=== PATIENT | female | born 1965 | race Caucasian/White ===

== ENCOUNTER 2018-03-29 08:34 | Inpatient (IN) ==
--- NOTE | 2018-03-29 09:11 | ED ---
HPI General Chief complaint: Respiratory Symptoms Stated complaint: SOB Time Seen by Provider: 03/29/18 08:59 History of Present Illness HPI narrative: Patient presents to the emergency department complaining of shortness of breath chest pain and back pain since yesterday. She states she had similar episode in the past and was secondary to asthma/bronchitis. Use an old inhaler this morning but that did not help. Feels like she needs a breathing treatment. Recent travel, fever, vomiting, lower extremity edema. Does report shortness of breath at rest and on exertion and nausea. Chest pain described as being diffuse chest radiating to her back, 5 out of 10, constant, tight/pressure-like, aggravated by cigarettes, no alleviating factors. Related Data Home Medications Medication Instructions Recorded Confirmed valacyclovir [Valtrex] 500 mg PO DAILY 03/29/18 03/29/18 Allergies Allergy/AdvReac Type Severity Reaction Status Date / Time opioids AdvReac Vomiting Uncoded 03/29/18 08:57 Review of Systems ROS: all other systems reviewed are negative [facility] Medical History Medical History Asthma (Acute) Social History Social History Substance History: Active Abuse Second Hand Smoke Exposure: Yes Smoking Status: Current every day smoker Tobacco Type: Cigarettes How Often Do You Have a Drink Containing Alcohol: Never Recent Travel in [facility] within the Last 8 Weeks: No Recent Out of Country Travel within the Last 8 Weeks: No Substance Abuse Detail Marijuana: Route Used Substance Abuse: By Mouth Immunization History Tetanus Immunization: >5 Years Hx Influenza Vaccine This Season: No Exam Narrative Exam Narrative: GENERAL: Positive discomfort SKIN: Focused skin assessment warm/dry. HEAD: Atraumatic. Normocephalic. EYES: Pupils equal and round. No scleral icterus. No injection or drainage. ENT: No nasal bleeding or discharge. Mucous membranes pink and moist. NECK: Trachea midline. No JVD. CARDIOVASCULAR: Regular rate and rhythm. No murmur appreciated. No pulse deficits. RESPIRATORY: No accessory muscle use. Clear to auscultation. Breath sounds equal bilaterally. Tachypnea. GASTROINTESTINAL: Abdomen soft, non-tender, nondistended. Hepatic and splenic margins not palpable. MUSCULOSKELETAL: No obvious deformities. No clubbing. No cyanosis. No edema. NEUROLOGICAL: Awake and alert. No obvious cranial nerve deficits. Motor grossly within normal limits. Normal speech. PSYCHIATRIC: Appropriate mood and affect; insight and judgment normal. Course Initial Documented Vital Signs Temperature 98.2 F 03/29/18 08:44 Pulse Rate 102 H 03/29/18 08:44 Respiratory Rate 26 H 03/29/18 08:44 Blood Pressure 113/58 L 03/29/18 08:44 Pulse Oximetry 100 03/29/18 08:44 Last Documented Vital Signs Temperature 98.2 F 03/29/18 08:44 Pulse Rate 79 03/29/18 10:43 Respiratory Rate 19 03/29/18 10:43 Blood Pressure 110/62 03/29/18 10:43 Pulse Oximetry 100 03/29/18 10:43 Critical Care Time Critical Care Time: Yes Total Critical Care Time: 30 Attestation: Aggregate critical care time was 30 minutes. Time to perform other separately billable procedures was not included in the critical care time. My time did not include minutes spent treating any other patients simultaneously or on activities that did not directly contribute to the patient's treatment. The services I provided to this patient were to treat and/or prevent clinically significant deterioration that could result in: cardiac arrest, cardiac arrhythmia, , increased morbidity. I provided critical care services requiring my management, as noted below: Chart data review, documentation time, medication orders and management, vital sign assessments/reviewing monitor data, ordering and reviewing lab tests, ordering and interpreting/reviewing x-rays and diagnostic studies, care of the patient and discussion of the patient with the admitting physicians. Medical Decision Making MDM Narrative Medical decision making narrative: Patient presents to the emergency department with chest pain and shortness of breath. Patient placed on cardiac exercise specialist, continuous pulse ox, and IV access obtained. Chest x-ray, EKG, labs ordered. She also given 1 DuoNeb and aspirin 325 mg p.o. CXR, cardiac enz, d-dimer wnl; potassium low (2.5)-> Given 40meq po and 20MEQ IV over 2 hours. Patient c/o chest and neck and back pain. Allergic to opioids, states NSAIDS help. Given 30mg IV toradol. Sttaes toradol has helped. Will beadmitted for chest pain and hypokalemia. Medical Screen Exam Complete: Yes Emergency Medical Condition: Yes Lab Data Result diagrams: 03/29/18 09:22 03/29/18 09:22 Lab Results 03/29/18 03/29/18 03/29/18 Range/Units 09:22 09:22 09:22 WBC 11.5 H (4.0-11.0) th/mm3 RBC 4.09 (4.00-5.30) mil/mm3 Hgb 12.1 (11.6-15.3) gm/dL Hct 36.6 (35.0-46.0) % MCV 89.5 (80.0-100.0) fL MCH 29.5 (27.0-34.0) pg MCHC 33.0 (32.0-36.0) % RDW 14.3 (11.6-17.2) % Plt Count 377 (150-450) th/mm3 MPV 8.8 (7.0-11.0) fL Neut % (Auto) 74.9 H (16.0-70.0) % Lymph % (Auto) 15.2 (9.0-44.0) % [place] % (Auto) 9.1 H (0.0-8.0) % Eos % (Auto) 0.3 (0.0-4.0) % Baso % (Auto) 0.5 (0.0-2.0) % Neut # (Auto) 8.6 H (1.8-7.7) th/mm3 Lymph # (Auto) 1.8 (1.0-4.8) th/mm3 [place] # (Auto) 1.1 H (0.0-0.9) th/mm3 Eos # (Auto) 0.0 (0.0-0.4) th/mm3 Baso # (Auto) 0.1 (0.0-0.2) th/mm3 WBC Differential . Differential Comment Auto diff final PT 10.2 (9.8-11.6) sec INR 1.0 Ratio APTT 28.5 (24.3-30.1) sec D-Dimer Quant (PE/DVT) 0.43 (0.00-0.50) mg/L FEU Sodium 139 (136-145) meq/L Potassium 2.5 L* (3.5-5.1) meq/L Chloride 105 (98-107) meq/L Carbon Dioxide 22.6 (21.0-32.0) meq/L Anion Gap 11 (5-15) meq/L BUN 12 (7-18) mg/dL Creatinine 0.98 (0.50-1.00) mg/dL Estimated GFR 59 L (>89) mL/min Random Glucose 110 H (74-106) mg/dL Calcium 9.4 (8.5-10.1) mg/dL Magnesium 2.0 (1.5-2.5) mg/dL Total Bilirubin 0.8 (0.2-1.0) mg/dL AST 13 L (15-37) U/L ALT 17 (10-53) U/L Alkaline Phosphatase 99 (45-117) U/L Total Creatine Kinase 121 (26-192) U/L CK-MB (CK-2) 1.3 (0.5-3.6) ng/mL Troponin I Less than 0.02 L (0.02-0.05) ng/mL Total Protein 7.7 (6.4-8.2) g/dL Albumin 3.9 (3.4-5.0) g/dL Imaging Data Radiologist's impression: Chest X-Ray 03/29/18 09:08 CONCLUSION: No acute cardiopulmonary disease. ECG Data Attestation: I personally reviewed and interpreted this ECG as follows: (Sinus rhythm, rate approximately 90 normal axis, normal intervals, ST depression in lead II, 3, aVF, T-wave inversion in lead aVL, V1, V2, and V3) Discharge Plan Discharge Disposition Patient Disposition: 30 Still Patient Discharge Condition Condition: Stable Discharge Details Diagnosis: Acute hypokalemia, Chest pain Physicians Team ED Provider: Anitra Vitale Primary Care Provider: UNKNOWN, Rxs /Orders / Referrals /Forms Prescriptions: No Action valacyclovir [Valtrex] 500 mg Tablet 500 mg PO DAILY RF: 0 Discharge Interventions Interventions: Vital Signs Last Done: 03/29/18 10:43 Status ED Status: Pending Admission
[2018-03-29] MEDS ORDERED: Aspirin 325 MG Tablet PO ONE (09:13)
--- NOTE | 2018-03-29 09:28 | XR ---
EXAM DATE: 03/29/2018 9:23 AM EDT AGE/SEX: 52 years / Female INDICATIONS: Shortness of breath. CLINICAL DATA: This is the patient's initial encounter. Patient reports that signs and symptoms have been present for 2 days and indicates a pain score of 0/10. MEDICAL/SURGICAL HISTORY: None. None. COMPARISON: No prior exams available for comparison. FINDINGS: The lungs are clear without infiltrate, nodule, or mass. There is no appreciable pleural effusion for technique. Heart and mediastinum are unremarkable. CONCLUSION: No acute cardiopulmonary disease. Electronically signed by: Miguel Heredia MD 03/29/2018 9:27 AM EDT
[2018-03-29 09:55] LABS: Baso # (Auto) 0.1 th/mm3 (0.0-0.2); Baso % (Auto) 0.5 % (0.0-2.0); Eos % (Auto) 0.3 % (0.0-4.0); Hematocrit 36.6 % (35.0-46.0); Hemoglobin 12.1 gm/dL (11.6-15.3); Lymph # (Auto) 1.8 th/mm3 (1.0-4.8); Lymph % (Auto) 15.2 % (9.0-44.0); Mean Corpuscular Hemoglobin 29.5 pg (27.0-34.0); Mean Corpuscular Volume 89.5 fL (80.0-100.0); Mean Platelet Volume 8.8 fL (7.0-11.0); Mono # (Auto) 1.1 th/mm3 (0.0-0.9); Mono % (Auto) 9.1 % (0.0-8.0); Neut # (Auto) 8.6 th/mm3 (1.8-7.7); Neut % (Auto) 74.9 % (16.0-70.0); Platelet Count 377 th/mm3 (150-450); Red Blood Count 4.09 mil/mm3 (4.00-5.30); Red Cell Distribution Width 14.3 % (11.6-17.2); White Blood Count 11.5 th/mm3 (4.0-11.0)
[2018-03-29 10:08] LABS: Activated Partial Thrombo Time 28.5 sec (24.3-30.1); Prothrombin Time 10.2 sec (9.8-11.6)
[2018-03-29 10:13] LABS: D-Dimer 0.43 mg/L FEU (0.00-0.50)
[2018-03-29 10:17] LABS: Alanine Aminotransferase 17 U/L (10-53); Albumin 3.9 g/dL (3.4-5.0); Alkaline Phosphatase 99 U/L (45-117); Anion Gap 11 meq/L (5-15); Aspartate Aminotransferase 13 U/L (15-37); Blood Urea Nitrogen 12 mg/dL (7-18); Calcium 9.4 mg/dL (8.5-10.1); Carbon Dioxide 22.6 meq/L (21.0-32.0); Chloride 105 meq/L (98-107); Creatine Kinase 121 U/L (26-192); Glomerular Filtration Rate 59 mL/min (>89); Glucose,Random 110 mg/dL (74-106); Sodium 139 meq/L (136-145); Total Protein 7.7 g/dL (6.4-8.2)
[2018-03-29] MEDS ORDERED: Potassium Chlor 20 mEq Premix 20 MEQ/100 ML PIGGYBACK IV.SIG ONE (10:20)
[2018-03-29] MEDS ORDERED: Ketorolac Inj 30 MG/ML (IVP) Vial IV.PUSH ONE (10:20)
[2018-03-29 10:21] LABS: Potassium 2.5 meq/L (3.5-5.1)
[2018-03-29 10:49] LABS: Creatine Kinase MB 1.3 ng/mL (0.5-3.6)
[2018-03-29] MEDS: Potassium Chlor 10 mEq Premix 10 MEQ/100 ML PIGGYBACK IV.SIG SCH ×2 (10:50→13:00)
--- NOTE | 2018-03-29 11:50 | P.HPIM ---
History of Present Illness Primary Care Physician: UNKNOWN Chief Complaint: shortness of breath History of Present Illness: patient is a 52 y/o female with history of asthma who presented to ER with shortness of breath. she says that she's supposed to use ' her inhalers' but they are too expensive. she says that she started to have sob yesterday and this gradually got worse. she had occasional dry cough. she denies any fever or chills. she reports some chest pain which she relates to her cough. she denies any nausea,vomiting or diarrhea. Review of Systems All other systems reviewed negative except as stated in HPI PMFSH - History History Provided By: Patient - Medical History Medical History: Medical History (Last Updated 03/29/18 @ 08:54 by Nisreen Patrick) Asthma - Surgical History Surgical History: Surgical History (Last Updated 03/29/18 @ 11:46 by Souleymane Sandoval MD) S/P breast biopsy - Family History Family History: Family History (Last Updated 03/29/18 @ 11:47 by Souleymane Sandoval MD) Mother Family history of cancer Father Family history of cancer - Tobacco History Second Hand Smoke Exposure: Yes Tobacco Use In Past 30 Days: Yes Smoking Status: Current every day smoker Tobacco Type: Cigarettes - Alcohol History How Often Do You Have a Drink Containing Alcohol: Never - Substance Use History Substance History: Active Abuse - Substance Use Type Marijuana Route Used: By Mouth - Travel History Recent Travel in the [place] Within the Last 8 Weeks: No Recent Travel Out of the Country Within the Last 8 Weeks: No - Immunization History Tetanus Immunization: >5 Years Hx Influenza Vaccine This Season: No Medications and Allergies Active Medications: Active Medications Albuterol (Duoneb Neb (Prn)) 1 ampul NEB Q4HR NEB PRN PRN Reason: sob Potassium Chloride (Kcl 10 Meq Premix Inj) 10 meq in 100 mls @ 100 mls/hr IV.SIG Q1H NICHOLE Stop: 03/29/18 12:59 Last Admin: 03/29/18 10:50 Dose: 100 mls/hr Allergies Allergy/AdvReac Type Severity Reaction Status Date / Time opioids AdvReac Vomiting Uncoded 03/29/18 08:57 Home Medications Medication Instructions Recorded Confirmed Type valacyclovir [Valtrex] 500 mg PO DAILY 03/29/18 03/29/18 History Exam Vital signs: Vital Signs 03/29/18 08:44 03/29/18 08:53 03/29/18 09:32 Temperature 98.2 F Pulse Rate 102 H 95 H 82 Respiratory Rate 26 H 26 H 20 Blood Pressure 113/58 L 124/64 Pulse Oximetry 100 100 03/29/18 10:43 Temperature Pulse Rate 79 Respiratory Rate 19 Blood Pressure 110/62 Pulse Oximetry 100 Intake & Output 03/28/18 03/29/18 03/29/18 18:59 06:59 18:59 Weight 118 kg - Constitutional no acute distress - Routine HEENT Exam Eye: Present: PERRL - Routine Neck Exam Present: full ROM - Routine Respiratory Exam Present: CTA bilaterally - Routine Cardiovascular Exam Present: RRR - Routine Abdominal Exam Present: soft - Routine Extremities Exam Comments: no pedal edema. - Routine Neurological Exam Present: alert, oriented X3 Results - Labs CBC & Chem 7: 03/29/18 09:22 03/29/18 09:22 Labs: Short CBC 03/29/18 Range/Units 09:22 WBC 11.5 H (4.0-11.0) th/mm3 Hgb 12.1 (11.6-15.3) gm/dL Hct 36.6 (35.0-46.0) % Plt Count 377 (150-450) th/mm3 BMP 03/29/18 09:22 Sodium 139 Potassium 2.5 L* Chloride 105 Carbon Dioxide 22.6 BUN 12 Creatinine 0.98 Calcium 9.4 Cardiac Enzymes 03/29/18 Range/Units 09:22 Total Creatine Kinase 121 (26-192) U/L CK-MB (CK-2) 1.3 (0.5-3.6) ng/mL Troponin I Less than 0.02 L (0.02-0.05) ng/mL Liver Function 03/29/18 Range/Units 09:22 Total Bilirubin 0.8 (0.2-1.0) mg/dL AST 13 L (15-37) U/L ALT 17 (10-53) U/L Alkaline Phosphatase 99 (45-117) U/L Albumin 3.9 (3.4-5.0) g/dL - Imaging Impressions Chest X-Ray 03/29/18 09:08 CONCLUSION: No acute cardiopulmonary disease. Caprini VTE Risk Assessment Caprini VTE Risk Assessment: Moderate/High Risk (score >= 2) Caprini Risk Assessment Model: Point Value = 1 Point Value = 2 Point Value = 3 Point Value = 5 Age 41-60 Minor surgery BMI > 25 kg/m2 Swollen legs Varicose veins or History of unexplained or recurrent spontaneous Oral contraceptives or hormone replacement Sepsis (< 1 month) Serious lung disease, including pneumonia (< 1 month) Abnormal pulmonary function Acute myocardial infarction Congestive heart failure (< 1 month) History of inflammatory bowel disease Medical patient at bed rest Age 61-74 Arthroscopic surgery Major open surgery (> 45 min) Laparoscopic surgery (> 45 min) Malignancy Confined to bed (> 72 hours) Immobilizing plaster cast Central venous access Age >= 75 History of VTE Family history of VTE Factor V Leiden Prothrombin [id number] Lupus anticoagulant Anticardiolipin antibodies Elevated serum homocysteine Heparin-induced thrombocytopenia Other congenital or acquired thrombophilia Stroke (< 1 month) Elective arthroplasty Hip, pelvis, or leg fracture Acute spinal cord injury (< 1 month) Prophylaxis Regimen: Total Risk Factor Score Risk Level Prophylaxis Regimen 0-1 Low Early ambulation 2 Moderate Order ONE of the following: *Sequential Compression Device (SCD) *Heparin 5000 units SQ BID 3-4 Higher Order ONE of the following medications: *Heparin 5000 units SQ TID *Enoxaparin/Lovenox 40 mg SQ daily (WT < 150 kg, CrCl > 30 mL/min) *Enoxaparin/Lovenox 30 mg SQ daily (WT < 150 kg, CrCl > 10-29 mL/min) *Enoxaparin/Lovenox 30 mg SQ BID (WT < 150 kg, CrCl > 30 mL/min) AND/OR *Sequential Compression Device (SCD) 5 or more Highest Order ONE of the following medications: *Heparin 5000 units SQ TID (Preferred with Epidurals) *Enoxaparin/Lovenox 40 mg SQ daily (WT < 150 kg, CrCl > 30 mL/min) *Enoxaparin/Lovenox 30 mg SQ daily (WT < 150 kg, CrCl > 10-29 mL/min) *Enoxaparin/Lovenox 30 mg SQ BID (WT < 150 kg, CrCl > 30 mL/min) AND *Sequential Compression Device (SCD) Assessment and Plan - Plan A/P - mild exacerbation of asthma continue with neb treatment. -hypokalemia; received potassium supplement in ER- will repeat the level today and replace as needed. -chest pain- atypical- will trend the troponin. -DVT prophylaxis wih subq Lovenox. Discussed Condition With: ER physician and the patient.
[2018-03-29 15:42] LABS: Potassium 3.6 meq/L (3.5-5.1)
[2018-03-29] MEDS: Acetaminophen 325 MG Tablet PO PRN (19:24)
[2018-03-30] MEDS: Acetaminophen 325 MG Tablet PO PRN (08:09)
--- NOTE | 2018-03-30 09:51 | P.PN ---
Subjective Interval history: follow up for CP, sob, asthma-no sob, minimal wheezing, no cp, c/o headache "craving smoking", doesn't want patch, trying to quit. No fever, no acute changes overnight. Anxious to go home Physical Exam Vital signs: Vital Signs 03/29/18 10:43 03/29/18 11:09 03/29/18 14:40 Temperature 98.3 F Pulse Rate 79 81 Respiratory Rate 19 19 19 Blood Pressure 110/62 101/63 Pulse Oximetry 100 97 03/29/18 15:19 03/29/18 18:49 03/29/18 20:35 Temperature 98.2 F Pulse Rate 85 78 78 Respiratory Rate 19 19 19 Blood Pressure 118/63 Pulse Oximetry 98 03/30/18 00:00 03/30/18 04:00 03/30/18 08:00 Temperature 97.5 F L 98.1 F 98.0 F Pulse Rate 70 77 70 Respiratory Rate 20 18 18 Blood Pressure 96/53 L 99/55 L 101/54 L Pulse Oximetry 99 98 100 Intake & Output 03/29/18 03/30/18 03/30/18 18:59 06:59 18:59 Intake Total 200 / 200 Balance 200 / 200 Weight 118 kg 57.3 kg Intake: IV 200 / 200 KCl 10 mEq Premix Inj 10 meq In 100 / 100 100 ml @ 100 mls/hr IV.SIG Q1H NICHOLE Rx#:[id number] Other: Weight On Admission 55.3 kg Narrative: GENERAL: Well-nourished, well-developed patient in no apparent distress. SKIN: Warm and dry. HEAD: Atraumatic. Normocephalic. EYES: Pupils equal and round. No scleral icterus. No injection or drainage. ENT: No nasal bleeding or discharge. Mucous membranes pink and moist. NECK: Trachea midline. No JVD. CARDIOVASCULAR: Regular rate and rhythm. RESPIRATORY: faint wheezing. GASTROINTESTINAL: Abdomen soft, non-tender, nondistended. Hepatic and splenic margins not palpable. MUSCULOSKELETAL: Extremities without clubbing, cyanosis, or edema. No obvious deformities. NEUROLOGICAL: Awake and alert x 3. No obvious cranial nerve deficits. Motor grossly within normal limits. Five out of 5 muscle strength in the arms and legs. Normal speech. PSYCHIATRIC: Appropriate mood and affect; insight and judgment normal. Results - Labs CBC & Chem 7: 03/29/18 09:22 03/29/18 15:05 Laboratory Results - last 24 hr 03/29/18 03/29/18 03/29/18 09:22 09:22 09:22 WBC 11.5 H RBC 4.09 Hgb 12.1 Hct 36.6 MCV 89.5 MCH 29.5 MCHC 33.0 RDW 14.3 Plt Count 377 MPV 8.8 Neut % (Auto) 74.9 H Lymph % (Auto) 15.2 [place] % (Auto) 9.1 H Eos % (Auto) 0.3 Baso % (Auto) 0.5 Neut # (Auto) 8.6 H Lymph # (Auto) 1.8 [place] # (Auto) 1.1 H Eos # (Auto) 0.0 Baso # (Auto) 0.1 WBC Differential . Differential Comment Auto diff final PT 10.2 INR 1.0 APTT 28.5 D-Dimer Quant (PE/DVT) 0.43 Sodium 139 Potassium 2.5 L* Chloride 105 Carbon Dioxide 22.6 Anion Gap 11 BUN 12 Creatinine 0.98 Estimated GFR 59 L Random Glucose 110 H Calcium 9.4 Magnesium 2.0 Total Bilirubin 0.8 AST 13 L ALT 17 Alkaline Phosphatase 99 Total Creatine Kinase 121 CK-MB (CK-2) 1.3 Troponin I Less than 0.02 L Total Protein 7.7 Albumin 3.9 03/29/18 03/29/18 15:05 18:51 WBC RBC Hgb Hct MCV MCH MCHC RDW Plt Count MPV Neut % (Auto) Lymph % (Auto) [place] % (Auto) Eos % (Auto) Baso % (Auto) Neut # (Auto) Lymph # (Auto) [place] # (Auto) Eos # (Auto) Baso # (Auto) WBC Differential Differential Comment PT INR APTT D-Dimer Quant (PE/DVT) Sodium Potassium 3.6 D Chloride Carbon Dioxide Anion Gap BUN Creatinine Estimated GFR Random Glucose Calcium Magnesium Total Bilirubin AST ALT Alkaline Phosphatase Total Creatine Kinase CK-MB (CK-2) Troponin I Less than 0.02 L Less than 0.02 L Total Protein Albumin Assessment and Plan - Assessment (1) Asthma exacerbation Code(s): J45.901 - Unspecified asthma with (acute) exacerbation Status: Acute (2) Acute hypokalemia Code(s): E87.6 - Hypokalemia Status: Acute (3) Chest pain Code(s): R07.9 - Chest pain, unspecified Status: Acute (4) Tobacco abuse Code(s): Z72.0 - Tobacco use Status: Chronic - Plan A/P 52 y/o female with history of asthma, tobacco abuse who presented to ER with shortness of breath. Reported CP, poss sec to cough. Asthma exacerbation Tobacco abuse -continue duonebs PRN -Add Prednisone 20 mg po daily. -Tobacco abuse counseling CP -trop x 3, ruled out ACS. CP secondary to resp. distress Hypokalemia -K replaced -BMP today, pending DVT prophylaxis with Lovenox Overall symptoms improved, poss dc today after labs done. (3) Chest pain Qualifiers: Chest pain type: unspecified Qualified Code(s): R07.9 - Chest pain, unspecified
[2018-03-30] MEDS: predniSONE 20 MG Tablet PO SCH (10:32)
[2018-03-30 12:35] LABS: Calcium 8.3 mg/dL (8.5-10.1); Carbon Dioxide 25.9 meq/L (21.0-32.0)
[2018-03-30 12:54] LABS: Potassium 2.9 meq/L (3.5-5.1)
[2018-03-30] MEDS ORDERED: Potassium Chlor 10 mEq Premix 10 MEQ/100 ML PIGGYBACK IV.SIG ONE (12:58)
--- NOTE | 2018-03-30 17:17 | ECG ---
Date Performed: 03/29/2018 Time Performed: 13:26:59 PTAGE: 52 years EKG: Sinus rhythm NORMAL ECG PREVIOUS TRACING : 03/29/2018 08.53 DOCTOR: Sabiha Freedman Interpretating Date/Time 03/30/2018 17:16:48
--- NOTE | 2018-03-30 17:24 | ECG ---
Date Performed: 03/29/2018 Time Performed: 08:53:51 PTAGE: 52 years EKG: Sinus rhythm NONSPECIFIC ST ELEVATION BORDERLINE ECG NO PREVIOUS TRACING DOCTOR: Sabiha Freedman Interpretating Date/Time 03/30/2018 17:23:14
[2018-03-31] MEDS: Acetaminophen 325 MG Tablet PO PRN (03:34)
[2018-03-31 06:32] LABS: Calcium 8.6 mg/dL (8.5-10.1); Carbon Dioxide 25.2 meq/L (21.0-32.0); Potassium 3.8 meq/L (3.5-5.1)
[2018-03-31] MEDS: predniSONE 20 MG Tablet PO SCH (08:18)
--- NOTE | 2018-03-31 10:46 | P.PN ---
Subjective Interval history: follow up for CP, sob, asthma-no sob, no wheezing, no cp, c/o back pain- chronic. No fever, no acute changes overnight. No ectopy in tele. Noted with trigeminy yesterday, K was replaced. Physical Exam Vital signs: Vital Signs 03/30/18 12:00 03/30/18 16:00 03/30/18 20:00 Temperature 97.9 F 98.1 F 97.7 F Pulse Rate 77 87 82 Respiratory Rate 18 18 18 Blood Pressure 98/54 L 125/71 110/60 Pulse Oximetry 99 98 99 03/30/18 23:26 03/31/18 00:00 03/31/18 04:00 Temperature 97.5 F L 97.6 F Pulse Rate 65 76 67 Respiratory Rate 16 18 Blood Pressure 95/47 L 123/57 L Pulse Oximetry 98 99 03/31/18 08:00 Temperature 97.7 F Pulse Rate 65 Respiratory Rate 18 Blood Pressure 98/59 L Pulse Oximetry 100 Intake & Output 03/30/18 03/31/18 03/31/18 18:59 06:59 18:59 Intake Total 700 / 700 Balance 700 / 700 Weight 57.3 kg Intake: IV 100 / 100 KCl 10 mEq Premix Inj 10 meq In 100 / 100 100 ml @ 100 mls/hr IV.SIG ONCE ONE Rx#:[id number] Oral 600 / 600 Other: # Voids 4 2 Date of Last Bowel Movement 03/29/18 # Bowel Movements 1 Narrative: GENERAL: Well-nourished, well-developed patient in no apparent distress. SKIN: Warm and dry. HEAD: Atraumatic. Normocephalic. EYES: Pupils equal and round. No scleral icterus. No injection or drainage. ENT: No nasal bleeding or discharge. Mucous membranes pink and moist. NECK: Trachea midline. No JVD. CARDIOVASCULAR: Regular rate and rhythm. RESPIRATORY: LCTA GASTROINTESTINAL: Abdomen soft, non-tender, nondistended. Hepatic and splenic margins not palpable. MUSCULOSKELETAL: Extremities without clubbing, cyanosis, or edema. No obvious deformities. NEUROLOGICAL: Awake and alert x 3. No obvious cranial nerve deficits. Motor grossly within normal limits. Five out of 5 muscle strength in the arms and legs. Normal speech. PSYCHIATRIC: Appropriate mood and affect; insight and judgment normal. Results - Labs CBC & Chem 7: 03/29/18 09:22 03/31/18 04:12 Laboratory Results - last 24 hr 03/30/18 03/31/18 11:05 04:12 Sodium 140 142 Potassium 2.9 L* 3.8 D Chloride 107 108 H Carbon Dioxide 25.9 25.2 Anion Gap 7 9 BUN 8 12 Creatinine 0.76 0.78 Estimated GFR 80 L 77 L Random Glucose 128 H 81 Calcium 8.3 L D 8.6 Assessment and Plan - Assessment (1) Asthma exacerbation Code(s): J45.901 - Unspecified asthma with (acute) exacerbation Status: Acute (2) Acute hypokalemia Code(s): E87.6 - Hypokalemia Status: Acute (3) Chest pain Code(s): R07.9 - Chest pain, unspecified Status: Acute (4) Tobacco abuse Code(s): Z72.0 - Tobacco use Status: Chronic (5) COPD exacerbation Code(s): J44.1 - Chronic obstructive pulmonary disease with (acute) exacerbation Status: Acute - Plan A/P 52 y/o female with history of asthma, tobacco abuse who presented to ER with shortness of breath. Reported CP, poss sec to cough. Asthma exacerbation Likely COPD. Tobacco abuse Symptoms improved today, no wheezing, on RA -continue duonebs PRN -Prednisone 20 mg po daily. -Tobacco abuse counseling CP -trop x 3, ruled out ACS. CP secondary to resp. distress Hypokalemia, no diarrhea. No N/V Noted with trigeminy yesterday, K was 2.9. No ectopy today -K 2.9 yesterday, replaced -K 3.8 today DVT prophylaxis with Lovenox Symptoms improved, d/w pt the need for smoking cessation. Needs to f/u with PCP for management of asthma, COPD. Has not refilled inhalers in months. Has insurance Discharge today f/u PCP in one week Diet-heart healthy Activity as tolerated (3) Chest pain Qualifiers: Chest pain type: unspecified Qualified Code(s): R07.9 - Chest pain, unspecified
[2018-03-31] MEDS ORDERED: valACYclovir 500 MG Tab PO SCH (11:00)
--- NOTE | 2018-03-31 13:42 | ECG ---
Date Performed: 03/29/2018 Time Performed: 18:25:45 PTAGE: 52 years EKG: Sinus rhythm BORDERLINE ECG PREVIOUS TRACING : 03/29/2018 13.26 Since the previous tracing, no significant change noted DOCTOR: Ab Naylor Interpretating Date/Time 03/31/2018 13:40:03
--- NOTE | 2018-03-31 17:37 | P.DS ---
Date of admission: 03/29/18 21:36 Primary care physician: UNKNOWN Attending physician on discharge: Camilo Mathews Anticipated date of discharge: 03/31/18 Brief History from admission: patient is a 52 y/o female with history of asthma who presented to ER with shortness of breath. she says that she's supposed to use ' her inhalers' but they are too expensive. she says that she started to have sob yesterday and this gradually got worse. she had occasional dry cough. she denies any fever or chills. she reports some chest pain which she relates to her cough. she denies any nausea,vomiting or diarrhea. DS: Diagnosis - Discharge Diagnosis (1) Asthma exacerbation Status: Acute (2) Acute hypokalemia Status: Acute (3) Chest pain Status: Acute (4) Tobacco abuse Status: Chronic (5) COPD exacerbation Status: Acute DS: Summary Hospital Course: Patient is a 52 y/o female with history of asthma, poss. COPD who presented to ER with shortness of breath. She says that she's supposed to use ' her inhalers ' but they are too expensive. she says that she started to have sob yesterday and this gradually got worse. She had occasional dry cough. She denies any fever or chills. She reports some chest pain which she relates to her cough. She denies any nausea,vomiting or diarrhea. Pt. was put on duonebs, po steroids. Symptoms improved. Counseled about tobacco abuse, Nicotine patch ordered. Had CP, trop x 3 done,negative. Likely sec. resp. distress. Resolved Was found hypokalemic, no n/v/d. Not on lasix. Had some trigeminy. K was replaced, normalized to 3.8. No more ectopy. Pt. improved, instructed to f/u PCP to refill inhalers. Counseled to stop smoking Discharged in stable condition - Time Spent with Patient Total time spent providing and/or coordinating discharge services: Less than 30 minutes - Quality: VTE Deep Vein Thrombosis/Pulmonary Embolism Present on Admission: No Exam Vital signs: Vital Signs 03/30/18 20:00 03/30/18 23:26 03/31/18 00:00 Temperature 97.7 F 97.5 F L Pulse Rate 82 65 76 Respiratory Rate 18 16 Blood Pressure 110/60 95/47 L Pulse Oximetry 99 98 03/31/18 04:00 03/31/18 08:00 03/31/18 08:15 Temperature 97.6 F 97.7 F Pulse Rate 67 65 62 Respiratory Rate 18 18 Blood Pressure 123/57 L 98/59 L Pulse Oximetry 99 100 Intake & Output 03/30/18 03/31/18 03/31/18 18:59 06:59 18:59 Intake Total 700 / 700 Balance 700 / 700 Weight 57.3 kg Intake: IV 100 / 100 KCl 10 mEq Premix Inj 10 meq In 100 / 100 100 ml @ 100 mls/hr IV.SIG ONCE ONE Rx#:[id number] Oral 600 / 600 Other: # Voids 4 2 Date of Last Bowel Movement 03/29/18 # Bowel Movements 1 Results Procedures completed during hospitalization: none Labs on day of discharge: Labs from last 24 hours 03/31/18 04:12 Sodium 142 Potassium 3.8 D Chloride 108 H Carbon Dioxide 25.2 Anion Gap 9 BUN 12 Creatinine 0.78 Estimated GFR 77 L Random Glucose 81 Calcium 8.6 - Impressions ITS Impressions Chest X-Ray 03/29/18 09:08 CONCLUSION: No acute cardiopulmonary disease. Discharge Plan - Discharge Disposition Patient Disposition: 01 Discharge Home - Discharge Condition Condition: Stable - Discharge Order Discharge Orders: Discharge Order (Routine); Ordered 03/31/18 Ordered By: Celine Terrell - Discharge Details Anticipated Discharge Date: 03/31/18 - Physicians Team Primary Care Provider: UNKNOWN, Attending Provider: Camilo Mathews
== END 2018-03-31 14:20 | disposition home or self-care (01) ==
LOC: NEPC 08:34 → NEDA 21:36 → N04 23:16
PROVIDERS: ADMIT Hospitalist; ATTEND Hospitalist